=== PATIENT | male | born 1945 | race Caucasian/White ===

== ENCOUNTER 2021-10-30 08:42 | Outpatient (CLI) | payer MEDICARE, SELFPAY ==
[2021-10-30 08:49] LABS: Slide Review Reflex No
[2021-10-30 08:55] LABS: Hematocrit 44.3 % (37.0-53.0); Hemoglobin* 15.1 gm/dL (13.5-17.5); Mean Corpuscular HGB Conc 34 gm/dL (32-36); Mean Corpuscular Hemoglobin 31 pg (26-34); Mean Corpuscular Volume 91 fL (80-100); Red Blood Count 4.89 m/uL (4.30-5.90); White Blood Count* 7.06 K/uL (4.50-11.00)
[2021-10-30 08:57] LABS: Platelet Count* 168 K/uL (140-440)
[2021-10-30 13:49] LABS: Chloride* 106 mmol/L (96-114); Potassium* 4.4 mmol/L (3.6-5.1); Sodium* 140 mmol/L (135-149)
[2021-10-30 13:52] LABS: Blood Urea Nitrogen* 36 mg/dL (7-30); Carbon Dioxide* 25 mmol/L (20-32); Creatinine* 1.5 mg/dL (0.5-1.5); Estimated Glomerular Filt Rate 48.55; Glucose* 120 mg/dL (60-115)
== END 2021-10-30 08:43 | disposition home or self-care (01) ==
LOC: LKVREF 08:44
PROVIDERS: PCP Family Medicine; Visit Provider Family Medicine
DX: Z01.818 Encounter for other preprocedural examination (principal); I10 Essential (primary) hypertension
CPT/HCPCS: 80048; 85027

== ENCOUNTER 2022-02-01 11:32 | Outpatient (CLI) | payer MEDICARE, SELFPAY ==
[2022-02-01 14:19] LABS: Albumin* 4.4 g/dL (3.3-5.0); Chloride* 102 mmol/L (96-114); Sodium* 140 mmol/L (135-149)
[2022-02-01 14:20] LABS: Potassium* 4.6 mmol/L (3.6-5.1)
[2022-02-01 14:21] LABS: Cholesterol* 108 mg/dL (90-199); Creatinine* 1.5 mg/dL (0.5-1.5); Estimated Glomerular Filt Rate 48 ml/min
[2022-02-01 14:22] LABS: Alanine Aminotransferase* 29 U/L (4-50); Alkaline Phosphatase* 112 U/L (40-150); Aspartate Amino Transferase* 29 U/L (12-35); Bilirubin Total* 1.1 mg/dL (0.1-1.5); Blood Urea Nitrogen* 30 mg/dL (7-30); Carbon Dioxide* 28 mmol/L (20-32); Glucose* 118 mg/dL (60-115); Total Protein* 6.9 g/dL (6.0-8.3); Triglycerides* 140 mg/dL (40-149); Uric Acid* 8.7 mg/dL (2.2-8.4)
[2022-02-01 14:23] LABS: HDL Cholesterol* 32 mg/dL (>=40); LDL Cholesterol Calculated 48 mg/dL (<100)
== END 2022-02-01 11:33 | disposition home or self-care (01) ==
PROVIDERS: PCP Family Medicine; Visit Provider Family Medicine
DX: M10.9 Gout, unspecified (principal); Z00.00 Encounter for general adult medical examination without abnormal findings; E78.5 Hyperlipidemia, unspecified; I10 Essential (primary) hypertension
CPT/HCPCS: 80053; 80061; 84550

== ENCOUNTER 2022-03-11 13:51 | Outpatient (CLI) | payer MEDICARE, SELFPAY | END 2022-03-11 13:52 | disposition home or self-care (01) | LOC: RAD 13:53 | PROVIDERS: PCP Family Medicine; Visit Provider Family Medicine | DX: I35.0 Nonrheumatic aortic (valve) stenosis (principal); I35.1 Nonrheumatic aortic (valve) insufficiency; I34.0 Nonrheumatic mitral (valve) insufficiency; I51.7 Cardiomegaly | CPT/HCPCS: 93306 ==

== ENCOUNTER 2023-03-04 08:33 | Outpatient (CLI) | payer MEDICARE, SELFPAY | END 2023-03-04 08:34 | disposition home or self-care (01) | LOC: NFLDREF 03-07 07:14 | PROVIDERS: PCP Internal Medicine; Referring Provider Internal Medicine; Visit Provider Internal Medicine | DX: E78.5 Hyperlipidemia, unspecified (principal); I10 Essential (primary) hypertension; M10.9 Gout, unspecified; Z12.5 Encounter for screening for malignant neoplasm of prostate | CPT/HCPCS: 80053; 80061; 84153; 84550 ==

== ENCOUNTER 2023-03-17 06:28 | Outpatient (CLI) | payer MEDICARE, SELFPAY ==
--- NOTE | 2023-03-17 08:18 | W.ANESCHARGE ---
Anesthesia Charges Start Date/Time Anesthesia Start Date: 03/17/23 Anesthesia Start Time: 07:33 Stop Date/Time Anesthesia Stop Date: 03/17/23 Anesthesia Stop Time: 08:15
--- NOTE | 2023-03-17 11:19 | W.ANESCHARGE ---
Anesthesia Charges Start Date/Time Anesthesia Start Date: 03/17/23 Anesthesia Start Time: 07:33 Stop Date/Time Anesthesia Stop Date: 03/17/23 Anesthesia Stop Time: 08:15 Summary Extremes of Age - Over 70 or under 1: MDA
== END 2023-03-17 06:29 | disposition home or self-care (01) ==
PROVIDERS: PCP Internal Medicine; Visit Provider Surgery
DX: Z12.11 Encounter for screening for malignant neoplasm of colon (principal); K62.1 Rectal polyp; Z86.010 Personal history of colon polyps
CPT/HCPCS: 00811; 45385; 88305; 99100; J2704

== ENCOUNTER 2024-03-15 12:42 | Outpatient (CLI) | payer MEDICARE, SELFPAY ==
--- OUTSIDE RECORDS SUMMARY | 2024-03-15 12:44 | XMS_ITS | Clinical Summary ---
Author Organization [facility] Address [place], [place] [address] Care Team Providers Care Fiscal Manager Name Role Phone Avelino Pretty MD Primary Care Provider [phone] Allergies Active Allergy Reactions Criticality Noted Date Comments Formaldehyde Analogues Hives 02/01/2009 Medications Medication Sig Dispensed Refills Start Date End Date Status CENTRUM SILVER TAB take 1 tablet by oral route once daily 0 03/04/2008 Active CPAP Autotitration cpap 4-20cm of H2O, with accessories dx780.57 1 0 03/28/2008 Active lisinopril (PRINIVIL; ZESTRIL) 40 mg tabletIndications:U nspecified essential hypertension Take 1 tablet by mouth once daily. 90 tablet 3 07/12/2011 Active triamterene-hydroch lorothiazide, 37.5-25 mg, (DYAZIDE) 37.5-25 mg capsule Take 2 capsules by mouth every morning. Active niacin 500 mg tablet Take 500 mg by mouth once daily. Active diphenhydrAMINE (BENADRYL) 25 mg capsule Take 25 mg by mouth every 4 hours if needed. Active allopurinoL (ZYLOPRIM) 100 mg tablet Take 100 mg by mouth once daily. 01/02/2020 Active hyaluronidase in lidocaine-bupivacai ne ophth inj (LONG BLOCK)(HALLIE MIXTURE) Use as directed for procedure. Refrigerate. Expires: 11/16/2021 DOS: 11/14/21 10 mL 11/07/2021 Active Active Problems Problem Noted Date Diagnosed Date Severe obesity (BMI 35.0-39.9) with comorbidity 01/05/2020 JUNI 03/21/2008 AHI- 77 03/28/2008 Gout, unspecified 03/25/2000 HTN (hypertension) Overview (07/18/2009): Updated by system to replace inactive record Resolved Problems Problem Noted Date Diagnosed Date Resolved Date Rheumatoid arthritis(714.0) 01/08/2008 05/23/2008 Unspecified essential hypertension 05/05/2002 02/01/2009 Immunizations Name Administration Dates Next Due Influenza, IIV3 (Age >=3 years) 02/01/2009,03/04 Td (Age >=7 Years) 01/31/2003 Social History Tobacco Use Types Packs/Day Years Used Date Smoking Tobacco: Never Smokeless Tobacco: Never Alcohol Use Standard Drinks/Week Comments Not Currently 0 (1 standard drink = 0.6 oz pur e alcohol) Sex and Gender Information Value Date Recorded Sex Assigned at Not on file Gender Identity Not on file Sexual Orientation Not on file Obstetrics History Last Filed Vital Signs Vital Sign Reading Time Taken Comments Blood Pressure 166/71 05/03/2020 9:50 AM COLLETER Pulse 61 05/03/2020 9:50 AM COLLETER Temperature 36.7 ??C (98 ??F) 08/28/2018 7:15 PM CDT Respiratory Rate 16 08/28/2018 7:15 PM CDT Oxygen Saturation 96% 05/03/2020 9:50 AM COLLETER Inhaled Oxygen Concentration - - Weight 109.2 kg (240 lb 11.2 oz) 05/03/2020 9:50 AM COLLETER Height 166.4 cm (5' 5.5) 08/28/2018 1:13 PM CDT Body Mass Index 39.45 08/28/2018 1:13 PM CDT Plan of Treatment Upcoming Encounters Date Type Department Care Team (Late st Contact Info) Description 03/15/2024 1:00 PM COLLETER Ancillary Procedure [facility] [address] [place] [address] Health Maintenance Due Date Last Done Comments Tdap 1956 Depression screening for age 12+ 1958 BMI (ht and wt on same day) for age 18+ 1964 Hepatitis C screening for age 18-79 1964 Zoster (shingles) series for age 50+ (1 of 2) 1996 Medicare Wellness for age 65+ 12/17/2011 Pneumococcal series for age 65+ (1 of 1 - PCV) 12/17/2011 Tetanus booster 01/31/2013 01/31/2003 RSV vaccine for adults or pr egnancy (1 - 1-dose 75+ series) 2021 COVID-19 vaccine series ( season) 2024 02/15/2021, 07/28/2020, 07/07/2020 Influenza for age 65+ 01/04/2024 02/01/2009, 008 Advance Directives * Full Code (Latest Code Status on File) Date Activated Date Inactivated Comments 08/28/2018 1:05 PM 08/28/2018 9:38 PM Care Teams Fiscal Manager Relationship Specialty Start Date End Date Avelino Pretty MD [address] [place] [address] PCP - General Family Practice 08/10/18
== END 2024-03-15 12:43 | disposition home or self-care (01) ==
PROVIDERS: PCP Internal Medicine; Visit Provider Internal Medicine
DX: I10 Essential (primary) hypertension (principal); I35.0 Nonrheumatic aortic (valve) stenosis; I35.1 Nonrheumatic aortic (valve) insufficiency; I51.7 Cardiomegaly; I34.0 Nonrheumatic mitral (valve) insufficiency
CPT/HCPCS: 93306

== ENCOUNTER 2024-03-25 06:16 | Day surgery (SDC) | payer MEDICARE, SELFPAY ==
[2024-03-25] VITALS (19 sets, daily range): BP systolic 124–157; BP diastolic 64–79; PULSE 57–88; RESP 16; TEMP 36.8; O2SAT 95–98; BMI 37.3
--- OUTSIDE RECORDS SUMMARY | 2024-03-25 06:18 | XMS_ITS | Clinical Summary ---
Author Organization [facility] Address [place], [place] [address] Care Team Providers Care Senior Scheduler Name Role Phone Avelino Pretty MD Primary Care Provider [phone] Allergies Active Allergy Reactions Criticality Noted Date Comments Formaldehyde Analogues Hives 02/01/2009 Medications Medication Sig Dispensed Refills Start Date End Date Status CENTRUM SILVER TAB take 1 tablet by oral route once daily 0 03/04/2008 Active CPAP Autotitration cpap 4-20cm of H2O, with accessories dx780.57 1 0 03/28/2008 Active lisinopril (PRINIVIL; ZESTRIL) 40 mg tabletIndications :Unspecified essential hypertension Take 1 tablet by mouth once daily. 90 tablet 3 07/12/2011 Active diphenhydrAMINE (BENADRYL) 25 mg capsule Take 25 mg by mouth every 4 hours if needed. Active allopurinoL (ZYLOPRIM) 100 mg tablet Take 100 mg by mouth once daily. 01/02/2020 Active hyaluronidase in lidocaine-bupivac min ophth inj (LONG BLOCK)(HALLIE MIXTURE) Use as directed for procedure. Refrigerate. Expires: 11/16/2021 DOS: 11/14/21 10 mL 11/07/2021 Active rosuvastatin (CRESTOR) 10 mg tablet Take 10 mg by mouth at bedtime. 03/08/2024 Active amLODIPine (NORVASC) 2.5 mg tablet Take 2.5 mg by mouth once daily. 03/03/2024 Active triamterene-hydro chlorothiazide, 37.5-25 mg, (MAXZIDE-25) 37.5-25 mg tablet Take 1 Tablet by mouth once daily in the morning. 03/08/2024 Active triamterene-hydro chlorothiazide, 37.5-25 mg, (DYAZIDE) 37.5-25 mg capsule Take 2 capsules by mouth every morning. 4 Discontinue d(*Patient states no longer taking) niacin 500 mg tablet Take 500 mg by mouth once daily. 4 Discontinue d(*Patient states no longer taking) Active Problems Problem Noted Date Diagnosed Date Severe obesity (BMI 35.0-39.9) with comorbidity 01/05/2020 JUNI 03/21/2008 AHI- 78 03/28/2008 Gout, unspecified 03/25/2000 HTN (hypertension) Overview (07/18/2009): Updated by system to replace inactive record Resolved Problems Problem Noted Date Diagnosed Date Resolved Date Rheumatoid arthritis(714.0) 01/08/2008 05/23/2008 Unspecified essential hypertension 05/05/2002 02/01/2009 Encounters Date Type Department Care Team Description 03/18/2024 2:00 PM SENIOR DATA DEVELOPER Office Visit [facility] [address] [facility] [address] [place] [address] Negro Aleman MD Consult (SURGICAL CLEARANCE FOR RIGHT TKA ON 03/25 - REFERRED BY DR. DELGADILLO, HIS OV NOTE FROM 03/17/24 SCANNED INTO CHART - ECHO 03/15/24, IN EPIC - NO OUTSIDE CARDS/PT states feeling fine. /no cardiac symptoms today/nothing to note ) 03/18/2024 Travel 03/17/2024 Orders Only [facility] [address] [facility] [address] [place] [address] Alon Delgadillo MD <No scans attached> 03/15/2024 1:00 PM SENIOR DATA DEVELOPER Ancillary Procedure [facility] [address] [place] [address] from Last 3 Months Immunizations Name Administration Dates Next Due Influenza, IIV3 (Age >=3 years) 02/01/2009,03/04 Td (Age >=7 Years) 01/31/2003 Family History Medical History Relation Name Comments Premature CHD (under age 60) Neg. negative Sleep apnea Son Relation Name Status Comments Neg. Alive Son Alive Social History Tobacco Use Types Packs/Day Years [...] Sign Reading Time Taken Comments Blood Pressure 127/72 03/18/2024 1:53 PM SENIOR DATA DEVELOPER Pulse 72 03/18/2024 1:53 PM SENIOR DATA DEVELOPER Temperature 36.7 C (98 F) 08/28/2018 7:15 PM CDT Respiratory Rate 16 08/28/2018 7:15 PM CDT Oxygen Saturation 97% 03/18/2024 1:53 PM SENIOR DATA DEVELOPER Inhaled Oxygen Concentration - - Weight 103.1 kg (227 lb 6.4 oz) 03/18/2024 1:53 PM SENIOR DATA DEVELOPER Height 166.4 cm (5' 5.5) 08/28/2018 1:13 PM CDT Body Mass Index 37.27 08/28/2018 1:13 PM CDT Plan of Treatment Health Maintenance Due Date Last Done Comments Tdap 1957 Depression screening for age 12+ 1958 BMI (ht and wt on same day) for age 18+ 1964 Hepatitis C screening for ag e 18-79 1964 Zoster (shingles) series for age 50+ (1 of 2) 1996 Medicare Wellness for age 65+ 12/17/2011 Pneumococcal series for age 65+ (1 of 1 - PCV) 12/17/2011 Tetanus booster 01/31/2013 01/31/2003 RSV vaccine for adults or (1 - 1-dose 75+ series) 2021 Influenza for age 65+ 01/04/2024 02/01/2009, 008 COVID-19 vaccine series Completed 02/12/20 24, 02/20/2023, 05/21/2022, Additional history exists Procedures Procedure Name Priority Date/Time Associated Diagnosis Comments EKG 12 LEAD Routine 03/18/2024 2:51 PM SENIOR DATA DEVELOPER Nonrheumatic aortic (valve) stenosis Pre-op testing ECHO TTE COMPLETE WO CONTRAST Routine 03/15/2024 1:33 PM SENIOR DATA DEVELOPER Essential (primary) hypertension from Last 3 Months Results * EKG 12 LEAD (03/18/2024 2:51 PM SENIOR DATA DEVELOPER) Interpretation Sinus rhythm with frequent and consecutive Premature ventricular complexes Nonspecific ST abnormality Abnormal ECG No previous ECGs available Ventricular Rate 72 BPM Atrial Rate 72 BPM P-R Interval 144 ms QRS Duration 98 ms QT 402 ms QTc 440 ms P [place] 53 degrees R [place] -24 degrees T [place] 64 degrees 03/18/2024 2:51 PM SENIOR DATA DEVELOPER 03/19/2024 3:25 PM SENIOR DATA DEVELOPER Negro Aleman MD EKG ORD * ECHO TTE COMPLETE WO CONTRAST (03/15/2024 1:33 PM SENIOR DATA DEVELOPER) AORTIC VALVE MEAN PG 49 mmHg EJECTION FRACTION 68 % LVEDD 4.1 cm EJECTION FRACTION 60 - 65% Anatomical Region Laterality Modality Ultrasound 03/15/2024 1:01 PM SENIOR DATA DEVELOPER Narrative 03/15/2024 4:55 PM SENIOR DATA DEVELOPER ECHOCARDIOGRAM ANTOINE BRIDGES : 1945 78 years Study Date: 03/15/2024 1:01:50 PM Gender: M BP: 171/65 mmHg Height: 165.00 cm BSA: 2.10 m Weight: 104.00 kg Tech: Lisa Referring MD: ALON DELGADILLO Site: [facility] Reading Location: MOBILE OP Patient Location: Outpatient. Procedure: 2D, Color Doppler and Spectral Doppler. Indication for study: hypertension Cardiac Rhythm: Regular.Study quality: Fair. Final Impressions: 1. Normal LV size, mildly increased wall thickness, normal global systolic function with an estimated EF of 60 - 65%. 2. The aortic valve is trileaflet and sclerotic, moderate to severe stenosis and moderate regurgitation. Increased aortic velocity may also represent significant aortic regurgitation. The aortic valve peak velocity is 4.4 m/s, the peak gradient is 78 mmHg, and the mean gradient is 49 mmHg. The aortic valve area is 1.32 cm with a dimensionless index of 0.39. The stroke volume index is 64.4 ml/m . 3. Severely enlarged left atrium. 4. The mitral valve is sclerotic, trace mitral regurgitation. 5. The ascending aorta is dilated with a maximal diameter of 3.9 cm. 6. The aortic sinus is normal for age/sex/bsa with a maximal diameter of 3.6 cm. Chamber Sizes and Function Normal left ventricular size, mildly increased wall thickness, normal global systolic function with an estimated EF of 60 - 65%. No resting regional wall motion abnormality visualized. Left atrial size is severely enlarged. Right ventricular cavity size is normal, global systolic RV function is normal. The right atrium is moderately enlarged. Right atrial volume index is 20 ml/m . Right atrial area is 15 cm . The pulmonary artery is of normal size and origin. The sinus of Valsalva is normal for age/sex/bsa. The ascending aorta is dilated. Valves, RV Pressures and Diastolic Function The aortic valve is sclerotic, moderate to severe stenosis and moderate regurgitation. The mitral valve is sclerotic, trace mitral regurgitation. Indeterminate pattern of LV diastolic filling. The tricuspid valve is normal in structure. Tricuspid regurgitation is regurgitation is not evident. The pulmonic valve is not well visualized. No pulmonary regurgitation. Masses, Effusion, Shunts There is no pericardial effusion. The inferior vena cava is not well visualized, respiratory size variation not well visualized. No left to right shunting was detected by limited color flow Doppler interrogation of the interatrial septum. MEASUREMENTS AND CALCULATIONS 2-D Measurements and LV Function: LVID (d) 4.1 cm LV FS% (2D) 38 % LVID (s) 2.6 cm LVOT diameter 2.1 cm IVS (d) 1.4 cm HR 62 bpm LVPW (d) 1.3 cm LA Vol index 52 ml/m2 Ao Sinus 3.6 cm RA Vol index 20 ml/m2 Ao ST junct 2.8 cm RA area 15 cm Asc Ao 3.9 cm RV Max 4C (d) 2.4 cm LA 4.9 cm Diastology: Mitral Tissue Doppler E Peak 1.6 m/s e', Septum 0.05 m/s A Peak 1.8 m/s e', Lateral 0.08 m/s E/A 0.9 E/e' Average 25.44 DT 516 msec Aortic Valve: Vmax 4.4 m/s PETER (V) 1.15 cm AI P 1/2 581 msec VTI 1.02 m PETER (I) 1.32 cm LVOT V max 1.5 m/s Max PG 78 mmHg LVOT VTI 0.40 m Mean PG 49 mmHg SV 135 ml Dim Index 0.39 SV index 64 ml/m CO 8.4 l/min CI 4.0 l/min/m Mitral Valve: MVA 1.5 cm MV P 1/2 150 msec Tricuspid Valve and estimated PA pressures: TAPSE 2.5 cm . This study was interpreted by an [facility] accredited facility. CC: [facility] (med records) [facility]. Final Procedure Note Thompson Giron MD - 03/15/2024 ECHOCARDIOGRAM ANTOINE BRIDGES : 1945 78 years Study Date: 03/15/2024 1:01:50 PM Gender: M BP: 171/65 mmHg Height: 165.00 cm BSA: 2.10 m Weight: 104.00 kg Tech: [facility] Referring MD: ALON DELGADILLO Site: [facility] Reading Location: MOBILE OP Patient Location: Outpatient. Procedure: 2D, Color Doppler and Spectral Doppler. Indication for study: hypertension Cardiac Rhythm: Regular.Study quality: Fair. Final Impressions: 1. Normal LV size, mildly increased wall thickness, normal globalsystolic function with an estimated EF of 60 - 65%. 2. The aortic valve is trileaflet and sclerotic, moderate to severestenosis and moderate regurgitation. Increased aortic velocity may alsorepresent significant aortic regurgitation. The aortic valve peak velocityis 4.4 m/s, the peak gradient is 78 mmHg, and the mean gradient is 49mmHg. The aortic valve area is 1.32 cm with a dimensionless index of0.39. The stroke volume index is 64.4 ml/m . 3. Severely enlarged left atrium. 4. The mitral valve is sclerotic, trace mitral regurgitation. 5. The ascending aorta is dilated with a maximal diameter of 3.9 cm. 6. The aortic sinus is normal for age/sex/bsa with a maximal diameter of3.6 cm. Chamber Sizes and Function Normal left ventricular size, mildly increased wall thickness, normalglobal systolic function with an estimated EF of 60 - 65%. No restingregional wall motion abnormality visualized. Left atrial size is severelyenlarged. Right ventricular cavity size is normal, global systolic RVfunction is normal. The right atrium is moderately enlarged. Right atrialvolume index is 20 ml/m . Right atrial area is 15 cm . The pulmonaryartery is of normal size and origin. The sinus of Valsalva is normal forage/sex/bsa. The ascending aorta is dilated. Valves, RV Pressures and Diastolic Function The aortic valve is sclerotic, moderate to severe stenosis and moderateregurgitation. The mitral valve is sclerotic, trace mitral regurgitation.Indeterminate pattern of LV diastolic filling. The tricuspid valve isnormal in structure. Tricuspid regurgitation is regurgitation is notevident. The pulmonic valve is not well visualized. No pulmonaryregurgitation. Masses, Effusion, Shunts There is no pericardial effusion. The inferior vena cava is not wellvisualized, respiratory size variation not well visualized. No left toright shunting was detected by limited color flow Doppler interrogation ofthe interatrial septum. MEASUREMENTS AND CALCULATIONS 2-D Measurements and LV Function: LVID (d) 4.1 cm LV FS% (2D) 38 % LVID (s) 2.6 cm LVOT diameter 2.1 cm IVS (d) 1.4 cm HR 62 bpm LVPW (d) 1.3 cm LA Vol index 52 ml/m2 Ao Sinus 3.6 cm RA Vol index 20 ml/m2 Ao ST junct 2.8 cm RA area 15 cm Asc Ao 3.9 cm RV Max 4C (d) 2.4 cm LA 4.9 cm Diastology: Mitral Tissue Doppler E Peak 1.6 m/s e', Septum 0.05 m/s A Peak 1.8 m/s e', Lateral 0.08 m/s E/A 0.9 E/e' Average 25.44 DT 516 msec Aortic Valve: Vmax 4.4 m/s PETER (V) 1.15 cm AI P 1/2 581 msec VTI 1.02 m PETER (I) 1.32 cm LVOT V max 1.5 m/s Max PG 78 mmHg LVOT VTI 0.40 m Mean PG 49 mmHg SV 135 ml Dim Index 0.39 SV index 64 ml/m CO 8.4 l/min CI 4.0 l/min/m Mitral Valve: MVA 1.5 cm MV P 1/2 150 msec Tricuspid Valve and estimated PA pressures: TAPSE 2.5 cm . This study was interpreted by an [facility] accredited facility. CC: [facility] (med records) [facility]. Final Alon Delgadillo MD ECHO ORD from Last 3 Months Advance Directives * Full Code (Latest Code Status on File) Date Activated Date Inactivated Comments 08/28/2018 1:05 PM 08/28/2018 9:38 PM Care Teams Senior Scheduler Relationship Specialty Start Date End Date Avelino Pretty MD [address] [place] [address] PCP - General Family Practice 08/10/18
[2024-03-25] MEDS: ACETAMINOPHEN 500 MG TABLET 1000 MG PO (06:22)
[2024-03-25] MEDS: OXYCODONE (CR) 10 MG TAB.ER.12H PO (07:00)
[2024-03-25] MEDS: LACTATED RINGERS 1000 ML 1,000 ML 100 ML IV (07:00)
[2024-03-25] MEDS: CELECOXIB 200 MG CAPSULE PO (07:00)
[2024-03-25] MEDS: SODIUM CHLORIDE 0.9 % (FLUSH) 10 ML SYRINGE IVF (07:00)
--- NOTE | 2024-03-25 07:16 | SUR.PREOP ---
TIME?OUT:?0720 PT/RN/MDA?VERIFICATION?OF?SURGICAL?SITE Right Knee,?PROCEDURE Nerve Block,?AND?CONSENT OBTAINED?PRIOR?TO?INVASIVE?PROCEDURE.
[2024-03-25] MEDS: fentaNYL 100 MCG/2 ML inj IVP (07:21)
[2024-03-25] MEDS: MIDAZOLAM HCL 1 MG/ML inj IVP (07:21)
[2024-03-25] MEDS: CEFAZOLIN 2 GM INJ IVP (07:50)
[2024-03-25] MEDS: TRANEXAMIC ACID 100 MG/ML INJ 1000 MG IV (08:01)
--- NOTE | 2024-03-25 08:06 | W.ANESCHARGE ---
Anesthesia Charges Start Date/Time Anesthesia Start Date: 03/25/24 Anesthesia Start Time: 07:42 Stop Date/Time Anesthesia Stop Date: 03/25/24 Anesthesia Stop Time: 10:12 Summary Extremes of Age - Over 70 or under 1: MDA
--- NOTE | 2024-03-25 08:07 | P.NB_ITS ---
Nerve Block Nerve Block Time Seen by Provider: 07:20 Date Seen: 03/25/24 Type of block requested by surgeon for post-operative analgesia: geniculars Side: right Time out performed: Yes Verification of patient name: Yes Verification of date of : Yes Site marking: site marked Name of person performing procedure: Mehdi Continuous monitoring Was continuous monitoring of O2 sat, B/P, registered nurse cardiac telemetry, recorded every 15 minutes?: Yes Procedure Checklist: sterile prep, needles and gloves Ultrasound guided. Images saved: Yes Medications given in 5ml increments after negative aspiration: Marcaine %: 0.25 mL: 9 Needle gauge: 25 Patient tolerated procedure well: Yes Block Charges Block Charge (with Pro Fee): Genicular Nerve Block
--- NOTE | 2024-03-25 08:07 | P.NB_ITS ---
Nerve Block Nerve Block Time Seen by Provider: 07:20 Date Seen: 03/25/24 Type of block requested by surgeon for post-operative analgesia: adductor canal Side: right Time out performed: Yes Verification of patient name: Yes Verification of date of : Yes Site marking: site marked Name of person performing procedure: Mehdi Continuous monitoring Was continuous monitoring of O2 sat, B/P, playground monitor, recorded every 15 minutes?: Yes Procedure Checklist: sterile prep, needles and gloves Ultrasound guided. Images saved: Yes Medications given in 5ml increments after negative aspiration: Marcaine %: 0.25 mL: 15 Needle gauge: 20 Precedex (mcg): 25 Patient tolerated procedure well: Yes Block Charges Block Charge (with Pro Fee): Femoral Nerve Use of Ultrasound Machine for Block: Yes- US Guidance/pain block
--- NOTE | 2024-03-25 09:37 | CRLHL7_ITS ---
For Patients: As a result of the Cures Act, medical imaging exams and procedure reports are released immediately into your electronic medical record. You may view this report before your referring provider. If you have questions, please contact your health care provider. Indication: Postop Technique: Two views right knee Findings/Impression: Hardware from a right total knee arthroplasty is in satisfactory position. Bone alignment is normal. No sign of acute fracture. Postop changes are within normal limits. Dictated by Richard Little MD @ 03/25/2024 12:15:43 PM (Electronically Signed)
--- NOTE | 2024-03-25 09:38 | P.ORPRC_ITS ---
Procedure Note Date of procedure: 03/25/24 Procedure: PREOPERATIVE DIAGNOSIS: Right knee osteoarthritis POSTOPERATIVE DIAGNOSIS: Right knee osteoarthritis NAME OF OPERATION: Right total knee arthroplasty SURGEON: Jacky Thompson MD AFTER SCHOOL TUTOR: INOCENCIO Catherine ANESTHESIA: Spinal ESTIMATED BLOOD LOSS: 0 mL COMPLICATIONS: None SPECIMENS: None DRAINS: None PREOPERATIVE ANTIBIOTICS: Ancef 2 grams, antibiotic impregnated cement IMPLANTS: 1. J&J Attune # 7 posterior stabilized femur 2. # 6 fixed-bearing tibia 3. # 7 posterior stabilized, 5 mm fixed-bearing polyethylene 4. 41 patella INDICATIONS: The patient is a 78-year-old with a longstanding history of sever e, unrelenting right knee pain secondary to end-stage (grade IV) right knee osteoarthritis. Despite appropriate nonoperative management, including activity modification, anti-inflammatories, zkul-ipb-wvqfyvl pain medication, bracing, physical therapy, and injections they continue to have pain and disability. Operative intervention was offered. The risks, benefits and expected outcomes were discussed in detail. These included but were not limited to: Infection, bleeding, injury to blood vessel or nerve, venous thromboembolism. All questions were answered to their satisfaction. Use of an anesthesiology physician assistant was necessary throughout the case for patient positioning and safety, soft tissue retraction, and closure. PROCEDURE: Spinal anesthesia was administered. The patient was placed supine on the operating table. The anesthesiology physician assistant made sure the patient was positioned appropriately. The lower extremity was prepped and draped in the usual sterile fashion. The limb was exsanguinated with the Jason bandage. The pneumatic tourniquet was inflated to 300 mmHg. A standard anterior incision was made with the knee in flexion. Subcutaneous dissection was sharply taken through fascial layer #1. Full-thickness medial and lateral flaps were elevated. The anesthesiology physician assistant retracted the soft tissues and protected them throughout the case. A standard subvastus approach was made. The patella was subluxed. The infrapatellar fat pad was debrided. The menisci and cruciate ligaments were sharply d?brided. Marginal osteophytes were d?brided with the rongeur. The drill was used to penetrate the femoral canal. The canal was aspirated and irrigated with pulse lavage. The intramedullary femoral guide was placed for a 5-degree valgus cut, removing 10 mm off the distal femur. The saw was used to make the cut. Whitesides line and the trans epicondylar axis were marked. The femoral sizing guide was pinned onto the distal femur. Three degrees of external rotation nicely parallels the transepicondylar axis. Pins were placed for posterior referencing. The four-in-one cutting guide was pinned onto the distal femur. The anterior, posterior, and chamfer cuts were made. The anesthesiology physician assistant protected the collateral ligaments. The box cutting guide was pinned. The box cuts were made. The boxed trial was placed and was an excellent fit. Drill holes for the lugs were made. Attention was then turned to the proximal tibia. The extramedullary tibial guide was placed for a neutral varus/valgus cut with 5 degrees of posterior slope, removing 2 mm based off the medial tibial surface. The anesthesiology physician assistant protected the collateral ligaments and the neurovascular bundle. The saw was used to make the cut. Trial components were placed. The knee was nicely balanced in both flexion and extension. The trial components were removed. The tray was placed in appropriate rotation, parallel to our tibial cutting pins. It was pinned by the anesthesiology physician assistant and the drill and the punch were used. The tray was removed. The punch was used again. We placed a bone plug in the femoral canal. Attention was then turned to the patella. Huslia patellar thickness was 26.5 mm. The lobster claw resection guide was used with the 9.5 mm teddy. The saw was used to make the cut. Drill holes were made by the anesthesiology physician assistant. The trial was placed and was an excellent fit. Cancellous surfaces were irrigated with pulse lavage and thoroughly dried by the anesthesiology physician assistant. We cemented the tibial component, then the femoral component. We impacted the 5 mm polyethylene onto the tibial tray. The knee was brought into full extension. We then cemented the patellar component. Excessive cement was removed. The cement was allowed to harden. The knee was taken through a range of motion and was found to be nicely balanced in both flexion and extension. The patella tracks centrally. The anesthesiology physician assistant did a three minute dilute Betadine solution soak. The anesthesiology physician assistant irrigated the wound with 3 liters of normal saline via pulse lavage. The anesthesiology physician assistant reapproximated the extensor mechanism with #1 Vicryl in an interrupted vnuacb-sc-wydlv fashion. The anesthesiology physician assistant then ran the extensor mechanism with a #1 PDO Stratafix. The anesthesiology physician assistant closed the subcutaneous tissues with a 3-0 Stratafix and the skin with a running 3-0 Stratafix in a subcuticular fashion. Glue was used to seal the skin. The anesthesiology physician assistant placed a dry dressing. Sponge and needle counts were correct x2. The patient tolerated the procedure well. There were no apparent complications. They were carefully transferred to the hospital bed and taken to the postanesthesia care unit in satisfactory condition. PLAN: The patient will be mobilized with physical therapy. Aspirin will be used for DVT prophylaxis. They will be discharged to home once medically appropriate.
--- NOTE | 2024-03-25 10:12 | W.ANESCHARGE ---
Anesthesia Charges Start Date/Time Anesthesia Start Date: 03/25/24 Anesthesia Start Time: 07:42 Stop Date/Time Anesthesia Stop Date: 03/25/24 Anesthesia Stop Time: 10:12
[2024-03-25] MEDS: 0.9 % SODIUM CHLORIDE 500 ML 500 ML IV (10:28)
[2024-03-25] MEDS: hydrOXYzine pamoate 25 MG CAPSULE PO (11:22)
[2024-03-25] MEDS: OXYCODONE 5 MG TABLET PO (11:22)
== END 2024-03-25 15:00 | disposition home or self-care (01) ==
LOC: OR 06:17
PROVIDERS: PCP Internal Medicine; Visit Provider Orthopaedic Surgery
PROC: (CPT 27447; principal; 2024-03-25 07:30)
DX: M17.11 Unilateral primary osteoarthritis, right knee (principal); G89.18 Other acute postprocedural pain; G47.33 Obstructive sleep apnea (adult) (pediatric); I10 Essential (primary) hypertension; E78.5 Hyperlipidemia, unspecified; I35.0 Nonrheumatic aortic (valve) stenosis
CPT/HCPCS: 27447; 01402; 64447; 64454; 73560; 76942; 97110; 97116; 97161; 99100; A9270; C1776; J0665; J0690; J1100; J2250; J2371; J2405; J2704; J3010; J3490; J7030; J7120

== ENCOUNTER 2024-05-04 13:00 | Outpatient (RCR) | payer MEDICARE, SELFPAY ==
--- NOTE | 2024-03-19 13:44 | PT.OPEX ---
PT [place] [facility] Eval PT [facility] Outpatient Eval Start: 03/19/24 11:59 Freq: Status: Active Protocol: Document 03/19/24 13:31 KLV (Rec: 03/19/24 13:39 KLV [id number]) E-signed By Tg Pani[place], PT Physical Therapy Outpatient Evaluation Insurance Information Recert Due Date 06/13/24 Insurance Name Medicare B,[employer]are Medical Diagnosis Right knee OA Pre and post-op R TKA DOS: Treating Diagnosis Right knee pain, limited knee ROM, antalgic gait, muscle weakness Referring MD Thompson Subjective Subjective Scott reports to PT with primary complaint of B knee pain however R knee much worse than the left. Currently not using AD, performing stairs step to . Overall significantly limiting his ability to walk. Lives with his in multilevel home with 7 steps to enter (B railings). Everything is on main level once he is in home. Has tub shower, high rise toilet, 2WW and SEC. states she feels confident to help him recover from surgery and assist with all of his rehab however he states he will attend first therapy session after surgery. PMH: PECHANGA, aortic valve stenosis, HTN, B knee OA, obstructive sleep apnea (CPAP) , Malignant neoplasm of prostate Pain Comments 11/11 Date of Last Physician Visit 01/21/24 Date of Surgery (If applicable) 03/25/24 Current Work Status Retired Precautions Treatment Precautions/Contraindications PECHANGA, aortic valve stenosis, HTN, B knee OA, obstructive sleep apnea (CPAP), Malignant neoplasm of prostate Objective Other/Pertinent Objective Knee ROM: -R 8-109 with genu varus positioning at rest/standing -L 0-118 Gait: no AD, limited stance time R LE and short stride lengths Quad set good SLR x10 w/8 deg contracture Functional Test Performed & Score LEFS: 30/80 Assessment Assessment/Impression Wilfredo (Scott) is a 78 year old male presenting to PT for preparation of upcoming R TKA DOS 03/25/24 d/t end stage OA with history of PECHANGA, aortic valve stenosis, HTN, B knee OA , obstructive sleep apnea ( CPAP), Malignant neoplasm of prostate. Session focused on education of post-operative fall prevention precautions, transfers, gait with AD, stair negotiation, post-operative exercises. He is able to verbalize precautions and demonstrated independence with exercises, gait and stairs and has appropriate equipment at home. He is appropriate to proceed with surgery at this time. Primary Functional Limitations Walking, standing, bending, stair negotiation Plan of Care Rehabilitation Potential Good Physical Therapy Goals By end of session today, patient will... Demonstrate appropriate gait pattern with FWW to utilize post surgery for optimal safety when ambulating Demonstrate ability to negotiate stairs using appropriate stair pattern post surgery for optimal safety when at home and in community Verbalize understanding of most appropriate home set up including needed equipment for optimal safety and recovery post surgery Be independent in HEP program to show ability to perform appropriate exercises post surgery Treatment Plan/Direct Interventions Gait Training,Ice/Cold/ Vasopneumatic,Joint Mobilization,Manual Therapy, Neuromuscular Re-ed,Self-Care/ Home Management,Therapeutic Activities,Therapeutic Exercises Frequency/Duration Re-evaluate following surgery Patient Will Be Discharged From Therapy Completion of LTG(s), Independent w/HEP, Independently Progressing Evaluation Billing Untimed Code Treatment Minutes 20 Complexity Moderate Certification Information Initial Certification Date 03/19/24 Ending Certification Date 06/13/24 Provider Signature Required Yes Provider Signature Shows Agreement With POC & Medical Necessity Physician NPI Number Write NPI# Here Physician Comment/Change : Physician Signature & Date Requested Please Sign/Date Here
--- NOTE | 2024-03-29 12:28 | PT.OPDN ---
PT [facility] Outpatient Daily Note PT [facility] Outpatient Daily Note Start: 03/29/24 07:31 Freq: Status: Active Protocol: Document 03/29/24 10:54 CJT (Rec: 03/29/24 12:27 CJT [id number]) E-signed By Abisai Dickey, PT PT OP Daily Progress Note Visit Information Note Type Daily Note Visit Number 2 Physician Authorized Visits Eval and treat Insurance Information Recert Due Date 06/13/24 Insurance Name Medicare B,[employer] Medical Diagnosis Right knee OA Pre and post-op R TKA DOS: Treating Diagnosis Right knee pain, limited knee ROM, antalgic gait, muscle weakness Referring MD Thompson Subjective Preferred Name Scott Subjective Pt presents for evaluation and treatment s/p R TKA performed on 03/25/[address] Thompson. Pt doing well. Managing his pain with oxy and Tylenol. Pt has been faithful with his HEP at home, performing under the direction of his Tesha 3 times daily. Pt also has been ambulating at home with a FWW but presents today with use of SPC. Pain Comments 11/11 Date of Last Physician Visit 01/21/24 Date of Surgery (If applicable) 03/25/24 Precautions Treatment Precautions/Contraindications BIG LAGOON, aortic valve stenosis, HTN, B knee OA, obstructive sleep apnea (CPAP), Malignant neoplasm of prostate Home Exercise Home Exercise Comments Post-Op TKA protocol Objective Other/Pertinent Objective Quad set: fair (initial), good (final) R Knee AROM: 0-5-90 Skin Inspection: Pts dressing in tact. No signs of drainage from incision at this time. No ecchymosis is present at this time. Mild to moderate edema. No erythema warmth or sign of infection Gait: Pt ambulates with SPC. Step-thru gait with reduced stride length bilaterally. Functional Test Performed & Score LEFS: 30/80 Patient Instructed in Risks/Benefits Yes Therapeutic Exercise Therapeutic Exercise Minutes (minutes) 20 Therapeutic Exercise: To Restore Ankle pumps x 10 Functional Status Quad set x 10, 5 hold Heel slides x 10 Hamstring sets x 10, 5 hold SAQ x 10 SLR x 15 LAQ x 10 NuStep - 6 minutes, level 2 Manual Therapy Techniques Manual Therapy Minutes (minutes) 10 Manual Therapy Techniques Decongestive massage to entire R LE to reduce swelling. Other Interventions Provided Other Modalities Provided Vasopneumatic: GameReady - 15 minutes, R knee, low pressure, pt in supine with legs elevated. Treatment Minutes Untimed Code Treatment Minutes 30 Timed Code Treatment Minutes 30 Total Treatment Time 60 Billing Units Manual Therapy Units 1 Therapeutic Exercise Units 1 Re-Evaluation Units 1 Assessment/Impression Assessment/Impression Pt is progressing quite well in his first 4 days post-op R TKA (DOS: 03/25/24). Pts R knee AROM measures 0-5-90 degrees this date. Minimal pain noted at end range. Pts pain improved throughout today 's session. I've encouraged Scott to remain diligent with his HEP performance. Pt shows no signs of infection of the R knee at this time. Pt is scheduled for follow-up with ortho and next PT appointment at the same time this upcoming Friday. I've asked that pt call orthopedics to try to move this appointment to an earlier or later time if possible. If not, we will place him on the waitlist or schedule with another therapist. PT services are medically necessary at this time to address deficits and return pt to highest level of function. Plan of Care Physical Therapy Goals STG - To be completed in 2-3 weeks: 1. Pt will report consistent use of ice as well as elevation of surgical limb while resting to reduce inflammation and swelling. 2. Pt will demonstrate 90 degrees of knee flexion on surgical limb to reduce risk of contracture development and progress through rehabilitation as expected. 3. Pt to show appropriate use of all AD's with minimal gait deviations and no LOB with all ambulation to reduce risk of falls and restore normal gait mechanics. 4. Pt will demo full knee extension to reduce risk of contracture in posterior knee and allow for ease of ambulation. LTG - To be completed in 8-12 weeks: 1. Pt to be I with HEP so that they may I manage progression of symptoms. 2. Pt will demonstrate 120 degrees knee flexion on surgical limb so that they may descend steps without restrictions in ROM. 3. Pt will perform 10+ squats of full depth with good control over medial/lateral deviation of knees to show improved functional strength to assist with transfers. 4. Pt will demonstrate 5/5 MMT knee flexion/extension of surgical limb to provide greater support to knee joint and allow for ease of ambulation. 5. Pt will ambulate with no AD and minimal gait deviations so that they may return to walking safely and comfortably for exercise and pleasure. Daily Plan of Care Continue per POC
== END 2024-06-30 13:39 | disposition home or self-care (01) ==
PROVIDERS: PCP Internal Medicine; Visit Provider Orthopaedic Surgery
DX: M17.11 Unilateral primary osteoarthritis, right knee (principal); Z96.651 Presence of right artificial knee joint; M25.561 Pain in right knee; Z74.09 Other reduced mobility; R26.9 Unspecified abnormalities of gait and mobility; M62.81 Muscle weakness (generalized); Z51.89 Encounter for other specified aftercare
CPT/HCPCS: 97110; 97140; 97162; 97164; 97535

== ENCOUNTER 2024-11-18 15:50 | Emergency (ER) | payer MEDICARE, SELFPAY ==
[2024-11-18] VITALS (20 sets, daily range): BP systolic 167–182; BP diastolic 71–78; PULSE 57–92; RESP 0–24; TEMP 37; O2SAT 95–99; BMI 33.1
--- OUTSIDE RECORDS SUMMARY | 2024-11-18 15:53 | XMS_ITS | Clinical Summary ---
Author Organization [facility] Address [facility] [place] [address] Care Team Providers Care Biotechnician Name Role Phone Avelino Pretty MD Primary Care Provider [phone] Allergies Active Allergy Reactions Criticality Noted Date Comments Formaldehyde Analogues Hives 02/01/2009 Medications CENTRUM SILVER TAB take 1 tablet by oral route once daily 0 03/04/20 08 Active CPAP Autotitration cpap 4-20cm of H2O, with accessories dx780.57 1 0 03/28/20 08 Active lisinopril (PRINIVIL; ZESTRIL) 40 mg tabletIndication s:Unspecified essential hypertension Take 1 tablet by mouth once daily. 90 tablet 3 07/12/19 12 Active diphenhydrAMINE (BENADRYL) 25 mg capsule Take 25 mg by mouth every 4 hours if needed. Active allopurinoL (ZYLOPRIM) 100 mg tablet Take 100 mg by mouth once daily. 01/02/20 20 Active hyaluronidase in lidocaine-bupiva yadiel ophth inj (LONG BLOCK)(HALLIE MIXTURE) Use as directed for procedure. Refrigerate. Expires: 11/16/2021 DOS: 11/14/21 10 mL 11/08/2021 3:58 PM CDT 11/08/19 Active Additional Information Patient not taking.Reported on 10/01/2024 rosuvastatin (CRESTOR) 10 mg tablet Take 10 mg by mouth at bedtime. 03/08/20 24 Active triamterene-hydr ochlorothiazide, 37.5-25 mg, (MAXZIDE-25) 37.5-25 mg tablet Take 1 Tablet by mouth once daily in the morning. 03/08/20 24 Active amLODIPine 5 mg tabletIndication s:HTN (hypertension) Take 1 Tablet (5 mg) by mouth once daily. 90 Tablet 3 10/02/19 25 Active Active Problems Problem Noted Date Diagnosed Date Severe obesity (BMI 35.0-39.9) with comorbidity 01/05/2020 JUNI 03/21/2008 AHI- 77 03/28/2008 Gout, unspecified 03/25/2000 HTN (hypertension) Overview (07/18/2009): Updated by system to replace inactive record Resolved Problems Problem Noted Date Diagnosed Date Resolved Date Rheumatoid arthritis(714.0) 01/08/2008 05/23/2008 Unspecified essential hypertension 05/05/2002 02/01/2009 Encounters Date Type Department Care Team Description 10/22/2024 Orders Only [facility] [address] [facility] [address] [place] [address] Negro Aleman MD <No scans attached> 10/01/2024 11:00 AM CDT Office Visit [facility] [address] [facility] [address] [place] [address] Negro Aleman MD Follow Up (6MONTH FOLLOW UP, NO TESTING PRIOR, DX: Nonrheumatic aortic (valve) stenosis [I35.0]; Pre-op testing [Z01.818]. PT states feeling fine. No cardiac symptoms today. Discuss his heart murmur. 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 Gender Identity Not on file Sexual Orientation Not on file Obstetrics History Last Filed Vital Signs Vital Sign Reading Time Taken Comments Blood Pressure 143/70 10/01/2024 10:45 AM CDT Pulse 59 10/01/2024 10:45 AM CDT Temperature 36.7 C (98 F) 08/28/2018 7:15 PM CDT Respiratory Rate 16 08/28/2018 7:15 PM CDT Oxygen Saturation 99% 10/01/2024 10:45 AM CDT Inhaled Oxygen Concentration - - Weight 95.1 kg (209 lb 9.6 oz) 10/01/2024 10:45 AM CDT Height 166.4 cm (5' 5.5) 10/01/2024 10:45 AM CD T Body Mass Index 34.35 10/01/2024 10:45 AM CDT Plan of Treatment Health Maintenance Due Date Last Done Comments Depression screening for age 12+ 1958 Hepatitis C screening for age 18-79 1964 Pneumococcal series for age 50+ (1 of 2 - PCV) 1965 Zoster (shingles) series for age 50+ (1 of 2) 1996 Medicare Wellness for age 65+ 12/17/2011 Tetanus booster 01/31/2013 01/31/2003 RSV vaccine for adults or (1 - 1-dose 75+ series) 2021 COVID-19 vaccine series ( season) 2024 02/12/2024, 02/20/2023, 05/21/2022, Additional history exists Influenza Vaccine (#1) 2025 02/01/2009, 2007 BMI (ht and wt on same day) for age 18+ 10/01/2025 10/01/2024 Hepatitis B series for 19+ Aged Out N o longer eligible based on patient's age to complete this topic Insurance [employer] MEDICARE ADVANTAGE MR Advance Directives * Full Code (Latest Code Status on File) Date Activated Date Inactivated Comments 08/28/2018 1:05 PM 08/28/2018 9:38 PM Care Teams Biotechnician Relationship Specialty Start Date End Date Avelino Pretty MD [address] [place] [address] PCP - General Family Practice 08/10/18
--- NOTE | 2024-11-18 16:13 | CRLHL7_ITS ---
For Patients: As a result of the Cures Act, medical imaging exams and procedure reports are released immediately into your electronic medical record. You may view this report before your referring provider. If you have questions, please contact your health care provider. INDICATION: Chest pain, shortness of breath TECHNIQUE: Chest radiograph 2 views COMPARISON: None FINDINGS: The sensitivity and specificity of the exam are moderately limited by the patient`s body habitus. Mediastinum: The central pulmonary arteries are enlarged and likely due to pulmonary hypertension. The heart silhouette is normal in size and morphology. Lung: Small lung volumes are noted with mild bibasilar atelectasis. No sign of pleural effusion seen. No pneumothorax is identified. Bone and Soft tissue: Unremarkable for age. IMPRESSIONS: 1. Small lung volumes are noted with mild bibasilar atelectasis. 2. The central pulmonary arteries are enlarged and likely due to pulmonary hypertension. Dictated by Walter Scales MD @ 11/18/2024 6:27:26 PM Dictated by: Walter Scales MD @ 11/18/2024 18:27:28 (Electronically Signed)
--- NOTE | 2024-11-18 16:20 | ED.GENADULT ---
HPI - General Adult General Date Seen: 11/18/24 Chief complaint: Chest Pain Stated complaint: chest pain Time Seen by Provider: 11/18/24 16:19 History of Present Illness HPI narrative: 78-year-old male presenting to the ER today with chest pain. He has a past medical history of hypertension, hyperlipidemia, sleep apnea, aortic stenosis, prostate cancer. Per cardiology records from a March 2024 he has a history of aortic stenosis and regurg. Echo in 2023 showed normal LV size, EF 60-65%. Aortic valve trileaflet, sclerotic. Moderate to severe stenosis and moderate regurg. Increase aortic velocity with peak velocity of 4.4 m/sec. Peak gradient 78 mm Hg. Mean gradient 49. Aortic valve area 1.32. Diameter of ascending aorta was 3.9 cm. Mitral valve was sclerotic. Trace mitral regurg. Left atrium enlarged. He has no history of coronary disease or stents. He has never had a stress test. No history of DVT or PE. 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 He sat down to relax in his recliner. After he was in the chair, hehad sudden onset of pain in the left side of his his chest with lightheadedness. He describes the pain as sharp. He was initially fairly severe at 9/10 but is now gotten better (unclear why) down to a 4/10. He was perhaps mildly and briefly nauseous. No palpitations. Mildly short of breath. He has not had any recent cough or fever. No other recent episodes of chest pain. No recent episodes of dyspnea on exertion. No new peripheral edema. No recent travel or immobilization. No abdominal pain. The pain did not radiate outside of his chest. No pain through to the back. No pain down his arm or up to his jaw. He mentions his history of aortic stenosis and last met with his train gateman in September and was told that they were going to keep an eye on his aortic valve but does not sound like there was any plan for imminent valve replacement. Related Data Home Medications ?Medication ?Instructions ?Recorded ?Confirmed diphenhydramine HCl 25 mg capsule mg PO DAILY 10/30/21 09/22/24 multivitamin (Multiple Vitamins 1 tab PO QDAY 10/30/21 09/22/24 tablet) amlodipine 5 mg tablet 5 mg PO DAILY 11/18/24 11/18/24 Previous Rx's ?Medication ?Instructions ?Recorded allopurinol 300 mg tablet 300 mg PO QDAY Gout #90 tabs 03/08/24 lisinopril 40 mg tablet 40 mg PO DAILY #90 tabs 03/08/24 rosuvastatin 10 mg tablet 10 mg PO DAILY #90 tabs 03/08/24 triamterene 37.5 2 tab PO DAILY #180 tabs 03/08/24 mg-hydrochlorothiazide 25 mg tablet Allergies Allergy/AdvReac Type Severity Reaction Status Date / Time formaldehyde Allergy Intermediate Hives Verified 11/18/24 18:08 [facility] Medical History Aortic valve stenosis (09/03/12) ?I35.0 - Nonrheumatic aortic (valve) stenosis (ICD-10) Diverticulosis of intestine (09/03/12) ?K57.90 - Diverticulosis of intestine, part unspecified, without perforation or abscess without bleeding (ICD-10) Encounter for annual wellness exam in Medicare patient ?Z00.00 - Encounter for general adult medical examination without abnormal findings (ICD-10) Gout (09/03/12) ?M10.9 - Gout, unspecified (ICD-10) Hearing loss ?H91.90 - Unspecified hearing loss, unspecified ear (ICD-10) Hyperlipidemia (09/03/12) ?E78.5 - Hyperlipidemia, unspecified (ICD-10) Hypertension (09/03/12) ?I10 - Essential (primary) hypertension (ICD-10) Malignant neoplasm of prostate ?C61 - Malignant neoplasm of prostate (ICD-10) Right acute serous otitis media ?H65.01 - Acute serous otitis media, right ear (ICD-10) Pre-op exam ?Z01.818 - Encounter for other preprocedural examination (ICD-10) COVID-19 vaccine administered ?Z23 - Encounter for immunization (ICD-10) Obstructive sleep apnea treated with continuous positive airway pressure (CPAP) (09/03/12) ?G47.33 - Obstructive sleep apnea (adult) (pediatric) (ICD-10) Osteoarthritis of left knee ?M17.12 - Unilateral primary osteoarthritis, left knee (ICD-10) Osteoarthritis of right knee ?M17.11 - Unilateral primary osteoarthritis, right knee (ICD-10) Surgical History History of arthroplasty of right knee (03/25/24) ?Z96.651 - Presence of right artificial knee joint (ICD-10) Status post cryotherapy of skin lesion ?Z98.890 - Other specified postprocedural states (ICD-10) History of cataract extraction ?Z98.49 - Cataract extraction status, unspecified eye (ICD-10) History of nasal surgery (09/03/12) ?Z98.890 - Other specified postprocedural states (ICD-10) Social History (Updated 03/03/24 @ 15:46 by Nivia Snyder ~ [facility]) Narrative: -Tesha What is your current living situation?: I presently have a place to live Problems where you live: no known problems In the past 12 months, utilities in danger of being shut off: no In past 12 months, lack of transportation kept you from medical appts, meetings, work, or getting things needed for daily living: no In the past 12 mos, have been you worried that your food would run out before you had money to buy more?: never true In the past 12 mos, the food you bought just didn't last and you didn't have money to buy more?: never true Smoking Status: Never smoker How often do you have a drink containing alcohol: never AUDIT-C Alcohol total score: 0 Non-prescribed substance use: denies use Caffeine: Yes How often does anyone, including family, friends and others, physically hurt you: never How often does anyone, including family, friends and others, insult or talk down to you: never How often does anyone, including family, friends and others, threaten you with harm: never How often does anyone, including family, friends and others, scream or curse at you: never Exam Narrative: Exam Narrative: Constitutional: Appears well-developed and well-nourished. Alert. Conversant. Non toxic. HENT: Head: Atraumatic. Nose: Nose normal. Mouth/Throat: Oral mucosa is clear and moist. no trismus. Pharynx normal. Tonsils symmetric. No tonsillar enlargement, erythema, or exudate. Eyes: Conjunctivae normal. EOM normal. Pupils equal, round, and reactive to light. No scleral icterus. Neck: Normal range of motion. Neck supple. No tracheal deviation present. No JVD Cardiovascular: Normal rate, regular rhythm. No gallop. No friction rub. Systolic murmur heard. Symmetric radial artery pulses Pulmonary/Chest: Effort normal. No stridor. No respiratory distress. No wheezes. No rales. No rhonchi . No tenderness. No bruising. No rash. Abdominal: Soft. Bowel sounds normal. No distension. No mass. No tenderness. No rebound. No guarding. Musculoskeletal: RUE: Normal range of motion. No tenderness. No deformity LUE: Normal range of motion. No tenderness. No deformity RLE: Normal range of motion. Trace edema. No tenderness. No deformity LLE: Normal range of motion. Trace edema. No tenderness. No deformity Neurological: Alert and oriented to person, place, and time. Normal strength. CN II-VII intact. No sensory deficit. GCS eye subscore is 4. GCS verbal subscore is 5. GCS motor subscore is 6. Normal coordination Skin: Skin is warm and dry. No rash noted. No pallor. Normal capillary refill. Psychiatric: Normal mood. Normal affect. Const: Vital Signs, click to edit/add: Vital Signs - 24 hr 11/18/24 15:58 11/18/24 16:13 11/18/24 16:32 Temperature 98.6 F Pulse Rate 92 Pulse Rate [Pulse Oximeter] 70 Respiratory Rate 16 24 Blood Pressure Blood Pressure [Ri ght Upper Arm] 177/71 H Pulse Oximetry 97 98 98 [facility] 11/18/24 16:47 11/18/24 17:00 11/18/24 17:15 Temperature Pulse Rate 64 69 68 Pulse Rate [Pulse Oximeter] Respiratory Rate 15 14 17 Blood Pressure 167/74 H Blood Pressure [Ri ght Upper Arm] Pulse Oximetry 98 96 97 Oxygen Delivery Ak thod 11/18/24 17:30 11/18/24 17:45 11/18/24 18:00 Temperature Pulse Rate 58 L 62 57 L Pulse Rate [Pulse Oximeter] Respiratory Rate 16 16 14 Blood Pressure Blood Pressure [Ri ght Upper Arm] Pulse Oximetry 97 97 97 [facility] 11/18/24 18:16 11/18/24 18:30 11/18/24 18:45 Temperature Pulse Rate 72 69 63 Pulse Rate [Pulse Oximeter] Respiratory Rate 11 L 12 Blood Pressure Blood Pressure [Ri ght Upper Arm] Pulse Oximetry 98 99 98 Oxygen Delivery Me thod 11/18/24 19:00 11/18/24 19:17 11/18/24 19:18 Temperature Pulse Rate 66 74 73 Pulse Rate [Pulse Oximeter] Respiratory Rate 12 0 L 9 L Blood Pressure 176/78 H Blood Pressure [Ri ght Upper Arm] Pulse Oximetry 98 97 97 Oxygen Delivery Me thod 11/18/24 19:30 11/18/24 19:45 11/18/24 20:00 Temperature Pulse Rate 72 64 57 L Pulse Rate [Pulse Oximeter] Respiratory Rate 8 L 8 L 14 Blood Pressure Blood Pressure [Ri ght Upper Arm] Pulse Oximetry 95 97 97 Oxygen Delivery Me thod 11/18/24 20:15 11/18/24 20:19 Temperature Pulse Rate 58 L Pulse Rate [Pulse Oximeter] Respiratory Rate 8 L 8 L Blood Pressure 182/71 H Blood Pressure [Ri ght Upper Arm] Pulse Oximetry 97 Oxygen Delivery Me thod Course Vital Signs Vital signs: Initial Vital Signs Temperature 98.6 F 11/18/24 15:58 Temperature Source Temporal Artery Scan 11/18/24 15:58 Pulse Rate 70 11/18/24 15:58 Respiratory Rate 16 11/18/24 15:58 Blood Pressure 177/71 H 11/18/24 15:58 Blood Pressure Mean 106 H 11/18/24 15:58 Blood Pressure Position Sitting 11/18/24 15:58 Pulse Oximetry 97 11/18/24 15:58 Oxygen Delivery Method Room Air 11/18/24 15:58 Vital Signs Temperature 98.6 F 11/18/24 15:58 Pulse Rate 70 11/18/24 15:58 Respiratory Rate 16 11/18/24 15:58 Blood Pressure 177/71 H 11/18/24 15:58 Pulse Oximetry 97 11/18/24 15:58 Oxygen Delivery Method Room Air 11/18/24 15:58 Temperature 98.6 F 11/18/24 15:58 Pulse Rate 58 L 11/18/24 20:15 Respiratory Rate 8 L 11/18/24 20:19 Blood Pressure 182/71 H 11/18/24 20:19 Pulse Oximetry 97 11/18/24 20:15 Oxygen Delivery Method Room Air 11/18/24 15:58 Medical Decision Making MDM Narrative Medical decision making narrative: This patient presents to the ER today for evaluation of sharp sudden onset left-sided chest pain that began this afternoon after he sat down to rest in his easy chair. He does report some fairly light physical activity for several hours without any chest pain prior to that. No recent chest pains or other episodes that might be suggestive for angina. Differential was broad. No evidence of palpitations, syncope or other cardiac dysrhythmia. We considered possible atypical presentation ACS, however workup with EKG and troponin is negative. Given time since onset of symptoms, we did check a delta troponins. I do not think the patient needs to be admitted for further sets of enzymes. EKG shows no evidence for pericarditis. Clinical presentation not suggestive of myocarditis. Chest x-ray shows no evidence for pneumonia, pneumothorax, pulmonary edema, pleural effusion, rib fracture, cardiomegaly. Mediastinum is normal on the x-ray. The patient has no ripping or tearing pain through to the back and has symmetric pulses on exam, no other acute neuro findings so I doubt aortic dissection. Risk of radiation and contrast exposure would outweigh the benefit of CT angiogram. We considered PE for this patient. Abnormal D-dimer prompted CT PA. No wheezing or bronchospasm to suggest COPD/asthma. No signs of chest wall cellulitis, shingles, injury. He does have a known history of aortic stenosis/regurg and saw his train gateman about 2 months ago. At that time there were not talking about in the imminent surgery but potential for surgery in the future if his aortic valve were to worsen. With reasonable clinical confidence, I think the patient is safe for outpatient follow up. Discussed return precautions. Questions answered. Patient voices comfort with the plan. Lab Data Labs: Lab Results 11/18/24 11/18/24 11/18/24 Range/Units 16:13 16:28 18:15 WBC 7.60 (4.50-11.00) K/uL RBC 4.50 (4.30-5.90) m/uL Hgb 13.6 (13.5-17.5) gm/dL Hct 40.6 (37.0-53.0) % MCV 90 (80-100) fL MCH 30 (26-34) pg MCHC 34 (32-36) gm/dL RDW Coeff of Feli 13.3 (11.5-15.5) % Plt Count 167 (140-440) K/uL Neut % (Auto) 69.4 (42.0-72.0) % Lymph % (Auto) 19.9 L (20-44) % Terrell % (Auto) 8.4 (0.0-11.0) % Eos % (Auto) 1.7 (0.0-7.0) % Baso % (Auto) 0.3 (0.0-3.0) % Neut # (Auto) 5.28 (1.7-7.0) K/uL Lymph # (Auto) 1.50 (0.90-2.90) K/uL Terrell # (Auto) 0.60 (0.00-0.90) K/UL Eos # (Auto) 0.13 (0.00-0.50) K/uL Baso # (Auto) 0.02 (0.00-0.30) K/uL Abs Immat Gran (auto) 0.02 (0.00-0.30) K/uL Imm/Tot Granulo (auto) 0.3 % D-Dimer Quant (PE/DVT) 1.02 H (0.00-0.50) ug/ml Sodium 139 (135-149) mmol/L Potassium 3.5 L (3.6-5.1) mmol/L Chloride 106 (96-114) mmol/L Carbon Dioxide 26 (20-32) mmol/L Anion Gap 7 (7-15) mEq/L BUN 25 (7-30) mg/dL Creatinine 1.2 (0.5-1.5) mg/dL Estimated Creat Clear 44.84 Estimated GFR 62 ml/min Glucose 137 H (60-115) mg/dL Calcium 10.2 (8.4-10.6) mg/dL NT-Pro-B Natriuret Pep 2400 H (See Note) pg/mL POC Troponin I 0.01 0.02 (0.01-0.04) ng/ml 11/18/24 Range/Units 19:14 WBC (4.50-11.00) K/uL RBC (4.30-5.90) m/uL Hgb (13.5-17.5) gm/dL Hct (37.0-53.0) % MCV (80-100) fL MCH (26-34) pg MCHC (32-36) gm/dL RDW Coeff of Feli (11.5-15.5) % Plt Count (140-440) K/uL Neut % (Auto) (42.0-72.0) % Lymph % (Auto) (20-44) % Terrell % (Auto) (0.0-11.0) % Eos % (Auto) (0.0-7.0) % Baso % (Auto) (0.0-3.0) % Neut # (Auto) (1.7-7.0) K/uL Lymph # (Auto) (0.90-2.90) K/uL Terrell # (Auto) (0.00-0.90) K/UL Eos # (Auto) (0.00-0.50) K/uL Baso # (Auto) (0.00-0.30) K/uL Abs Immat Gran (auto) (0.00-0.30) K/uL Imm/Tot Granulo (auto) % D-Dimer Quant (PE/DVT) (0.00-0.50) ug/ml Sodium (135-149) mmol/L Potassium (3.6-5.1) mmol/L Chloride (96-114) mmol/L Carbon Dioxide (20-32) mmol/L Anion Gap (7-15) mEq/L BUN (7-30) mg/dL Creatinine (0.5-1.5) mg/dL Estimated Creat Clear Estimated GFR ml/min Glucose (60-115) mg/dL Calcium (8.4-10.6) mg/dL NT-Pro-B Natriuret Pep (See Note) pg/mL POC Troponin I 0.01 (0.01-0.04) ng/ml Imaging Data CT scan - chest: Attestation: I have reviewed the pertinent imaging results. Radiologist's impression: IMPRESSION: 1. No pulmonary embolus. No CT evidence of right heart strain. 2. Mild enlargement of the main pulmonary artery, nonspecific and can be seen in the setting of pulmonary arterial hypertension. 3. Dense coronary arterial calcifications. Discharge Plan Discharge Clinical Impression: Chest pain Patient Disposition: Home, Self-Care Condition: Stable Instructions: Chest Pain (DC) Additional Instructions: As we discussed, so far your workup looks reassuring. I think her safe to go home tonight. However, I want you to monitor your self carefully. If you have any episodes of worsening chest pain, shortness of breath, or any other symptoms, please come back to the emergency room right away. Even if your getting better, please recheck with your regular doctor within the next 3-5 days for an ER follow-up visit. Prescriptions: No Action diphenhydramine HCl 25 mg capsule PO DAILY multivitamin [Multiple Vitamins] Tablet 1 tab PO QDAY allopurinol 300 mg tablet 300 mg PO QDAY Qty: 90 3RF lisinopril 40 mg tablet 40 mg PO DAILY Qty: 90 3RF rosuvastatin 10 mg tablet 10 mg PO DAILY Qty: 90 3RF triamterene-hydrochlorothiazid 37.5-25 mg tablet 2 tab PO DAILY Qty: 180 3RF amlodipine 5 mg tablet 5 mg PO DAILY Follow Up/Referrals: Alon Donald MD [Primary Care Provider, Internal Medicine] Stand Alone Forms: [employer] Info Instructions
[2024-11-18 16:45] LABS: Hematocrit 40.6 % (37.0-53.0); Hemoglobin* 13.6 gm/dL (13.5-17.5); Immature Granulocytes Abs Auto 0.02 K/uL (0.00-0.30); Immature Granulocytes Pct Auto 0.3 %; Lymphocytes Absolute Auto 1.50 K/uL (0.90-2.90); Mean Corpuscular HGB Conc 34 gm/dL (32-36); Mean Corpuscular Hemoglobin 30 pg (26-34); Mean Corpuscular Volume 90 fL (80-100); RDW Coefficient of Variation % 13.3 % (11.5-15.5); Red Blood Count 4.50 m/uL (4.30-5.90); Slide Review Reflex No; White Blood Count* 7.60 K/uL (4.50-11.00)
[2024-11-18 16:54] LABS: Troponin, Point-of-Care* 0.01 ng/ml (0.01-0.04)
[2024-11-18 17:01] LABS: Chloride* 106 mmol/L (96-114)
[2024-11-18 17:02] LABS: Potassium* 3.5 mmol/L (3.6-5.1); Sodium* 139 mmol/L (135-149)
[2024-11-18 17:04] LABS: D Dimer Quantitative* 1.02 ug/ml (0.00-0.50)
[2024-11-18 17:05] LABS: Anion Gap 7 mEq/L (7-15); Blood Urea Nitrogen* 25 mg/dL (7-30); Calcium* 10.2 mg/dL (8.4-10.6); Carbon Dioxide* 26 mmol/L (20-32); Creatinine* 1.2 mg/dL (0.5-1.5); Est. Creatinine Clearance* 44.84; Estimated Glomerular Filt Rate 62 ml/min; Glucose* 137 mg/dL (60-115)
--- NOTE | 2024-11-18 17:16 | CRLHL7_ITS ---
For Patients: As a result of the Century Cures Act, medical imaging exams and procedure reports are released immediately into your electronic medical record. You may view this report before your referring provider. If you have questions, please contact your health care provider. INDICATION: Dyspnea. Chest pain. TECHNIQUE: Multiplanar CT pulmonary angiogram was performed after the administration of 95 mL of Isovue 370 intravenous contrast. COMPARISON: None. FINDINGS: Lower neck: The visualized thyroid is unremarkable. Cardiovascular: Contrast opacification of the pulmonary arterial tree is adequate. Heart size is enlarged. Thoracic aorta is normal in caliber. The main pulmonary artery is mildly dilated measuring 3.4 cm. Severe atherosclerotic calcifications of the aortic arch. Dense coronary arterial calcifications. No pulmonary embolus. Mild pulmonary vascular congestion. Mediastinum and lymph nodes: Unremarkable. No pathologic mediastinal or hilar lymphadenopathy by size criteria. Lungs: No focal consolidation. Dependent atelectasis. Linear bandlike opacification of the lung bases bilaterally, likely subsegmental atelectasis and/or scarring. Trachea: The trachea remains patent and midline. Mild diffuse peribronchial wall thickening. Pleura: No pleural effusions or pneumothorax. Chest wall: Mild gynecomastia. Prominent axillary lymph nodes that do not meet size criteria for lymphadenopathy. Bones: No acute osseous abnormalities. Mild degenerative changes of the thoracic spine. Upper abdomen: No acute findings in the visualized upper abdomen. No reflux of contrast material into the IVC. IMPRESSION: 1. No pulmonary embolus. No CT evidence of right heart strain. 2. Mild enlargement of the main pulmonary artery, nonspecific and can be seen in the setting of pulmonary arterial hypertension. 3. Dense coronary arterial calcifications. Please note that all CT scans at this facility use dose modulation, iterative reconstruction, and/or weight-based dosing when appropriate to reduce radiation dose to as low as reasonably achievable. Dictated by Mario Alberto Li MD @ 11/18/2024 7:01:01 PM (Electronically Signed)
[2024-11-18 17:20] LABS: NT Pro B Type NatriureticPept* 2400 pg/mL (See Note)
[2024-11-18 19:09] LABS: Troponin, Point-of-Care* 0.02 ng/ml (0.01-0.04)
[2024-11-18 19:59] LABS: Troponin, Point-of-Care* 0.01 ng/ml (0.01-0.04)
== END 2024-11-18 20:22 | disposition home or self-care (01) ==
PROVIDERS: Emergency Provider Emergency Medicine; PCP Internal Medicine
DX: R07.9 Chest pain, unspecified (principal); R06.02 Shortness of breath
CPT/HCPCS: 36415; 71046; 71275; 80048; 83880; 84484; 85025; 85379; 93005; 94761; 99284; 99285; Q9967

== ENCOUNTER 2025-03-07 08:34 | Outpatient (CLI) | payer MEDICARE, SELFPAY | END 2025-03-07 08:35 | disposition home or self-care (01) | LOC: NFLDREF 03-10 11:12 | PROVIDERS: PCP Family Medicine; Referring Provider Family Medicine; Visit Provider Family Medicine | DX: E78.5 Hyperlipidemia, unspecified (principal); C61 Malignant neoplasm of prostate | CPT/HCPCS: 80053; 80061; G0103 ==